=== PATIENT | male | born 1985 | race Caucasian/White ===

== ENCOUNTER 2023-04-30 07:31 | Emergency (ER) | payer MEDICAID, SELFPAY ==
[2023-04-30 07:41] VITALS: BP 164/102; PULSE 99; RESP 16; TEMP 36.8; O2SAT 96; BMI 29.4
--- NOTE | 2023-04-30 07:52 | XR_ITS ---
WS: [email or web address] EXAMINATION: XR ankle LT min 3V* [id number] REASON FOR EXAM: trauma COMPARISON: None available. ORDER DATE: 04/30/2023 7:52 AM TECHNIQUE: 3 views of the left ankle were obtained. X-RAY FINDINGS: There is narrowing of the ankle mortise and minor osteoarthritic osteophyte change. T here is circumferential subcutaneous soft tissue edema. IMPRESSION: No fractures or dislocations of the left ankle.
--- NOTE | 2023-04-30 07:52 | XR_ITS ---
WS: [id number] EXAMINATION: XR foot LT min 3V* [id number] REASON FOR EXAM: trauma COMPARISON: None available. ORDER DATE: 04/30/2023 7:52 AM TECHNIQUE: 3 views of the left foot were obtained. X-RAY FINDINGS: There are no fractures or dislocations. No there appears to be dorsal edema throughout the foot. The joint spaces are preserved. IMPRESSION: No fractures or dislocations of the left foot.
--- NOTE | 2023-04-30 08:16 | XR_ITS ---
WS: [id number] EXAMINATION: XR knee LT 3V* [id number] REASON FOR EXAM: trauma COMPARISON: None available. ORDER DATE: 04/30/2023 8:16 AM FINDINGS: There is no sign of any acute osseous or articular abnormality. There are no specific soft tissue abn ormalities. IMPRESSION: No acute abnormality.
--- NOTE | 2023-04-30 08:16 | XR_ITS ---
WS: [email or web address] EXAMINATION: XR tibia fibula LT 2V [id number] REASON FOR EXAM: trauma COMPARISON: 04/30/2023 ORDER DATE: 04/30/2023 8:16 AM FINDINGS: There is no sign of any acute osseous or articular abnormality there is circumferential edema at the level of the ankle mortise with small joint effusion. IMPRESSION: Soft tissue edema and small joint effusion.
--- NOTE | 2023-04-30 08:47 | ED_ITS ---
HPI - Extremity Problem General: Chief complaint: Extremity Injury, Lower Stated complaint: fall, left leg pain Time Seen by Provider: 04/30/23 07:52 Source: patient Mode of arrival: ambulatory History of Present Illness: 37-year-old male presents emergency room with complaint of left leg pain after a fall he had an inversion injury of his left ankle while going down the stairs. No other injury did not fall no loss of consciousness. No previous injury to this ankle. MD Complaint: joint swelling and joint pain Onset (ago): minute(s) Pain Consistency: constant Location: left Quality: aching Radiation: none Relieving factors: nothing Exacerbating factors: nothing Associated symptoms: Deny chest pain, fever(s) or rash Review of Systems Const: Denies: fever(s) or chills Card: Denies: chest pain Resp: Denies: dyspnea GI: Denies: abdominal pain : Denies: dysuria Musc: Denies: neck pain or back pain Skin/Breast: Denies: rash or pruritus Neuro: Denies: headache(s) Physical Exam Const: COMMON NORMALS: no acute distress GENERAL APPEARANCE: cooperative and comfortable ORIENTATION/CONSCIOUSNESS: Yes awake, Yes oriented to person, Yes oriented to place and Yes oriented to time HENMT: COMMON NORMALS: normocephalic, atraumatic and hearing grossly normal bilaterally HEAD & SCALP: normocephalic and atraumatic Resp: COMMON NORMALS: normal respiratory effort, No retractions, No use of accessory muscles and clear to auscultation bilaterally AUSCULTATION: clear to auscultation bilaterally Cardio: COMMON NORMALS: regular rate, regular rhythm and No murmurs present (Cardio) RATE: regular rate RHYTHM: regular rhythm GI: COMMON NORMALS: Soft to palpation and No hepatosplenomegaly present AUSCULTATION: Yes normoactive bowel sounds PALPATION: Yes Soft to palpation, No Tenderness to palpation present (GI), No Guarding due to palpation present (GI) and Yes No hepatosplenomegaly present Extremity: OTHER: Mild swelling of the left ankle dorsalis pedis posterior tibialis pulses normal neurovascular intact no crepitus no deformity Neuro: SENSORIUM/ORIENTATION: Yes oriented to person, Yes oriented to place and Yes oriented to time Skin: COMMON NORMALS: no rashes or lesions noted GENERAL SKIN EXAM: no rashes or lesions noted Course Vital Signs: Vital signs: Vital Signs Temperature 98.3 F 04/30/23 07:41 Pulse Rate 96 04/30/23 09:15 Respiratory Rate 16 04/30/23 09:15 Blood Pressure 154/103 04/30/23 09:15 Pulse Oximetry 99 04/30/23 09:15 Oxygen Delivery Me thod Room Air 04/30/23 07:41 MDM - Extremity (Nontraumatic) Medical Decision Making X-ray unremarkable. Ankle sprain treated with ice elevation compression as needed anti-inflammatories as needed follow-up as needed Medical Records I reviewed the patient's medical records. All radiology interpretation(s) finalized by discharge Discharge Plan Discharge Patient Disposition: Home Clinical Impression: Ankle sprain and strain Condition: Stable Prescriptions: New diclofenac sodium 75 mg tablet,delayed release (DR/EC) 75 mg PO Q12H PRN (Reason: pain) Qty: 20 0RF No Action Tylenol Ex Str Rapid Release 500 mg Tablet 1,000 mg PO Q6H PRN (Reason: Pain) Discharge Orders: Discharge ED (Routine); Ordered 04/30/23 Ordered By: Mateo Gongora Discharge Diet: Usual diet Discharge Activity: Limit activity as instructed Patient Instructions: Ankle Sprain (ED), Opioid Safety, Pain Management Activity Restrictions/Additional Instructions: Nonweightbearing on the affected ankle. Follow-up with your primary care doctor. You can use ice wrap or elevate as needed for comfort diclofenac 1 every 12 hours as needed for pain Coding Level of Care Code ED Medical Transcription Supervisor for Ale Guy
[2023-04-30] MEDS: acetaminophen 500 mg Tablet 1000 MG PO (09:07)
[2023-04-30 09:13] VITALS: BP 154/103; PULSE 96; RESP 16; O2SAT 99
[2023-04-30 09:15] VITALS: BP 154/103; PULSE 96; RESP 16; O2SAT 99
== END 2023-04-30 09:17 | disposition home or self-care (01) ==
PROVIDERS: Emergency Provider Family Medicine
DX: S93.402A Sprain of unspecified ligament of left ankle, initial encounter (principal); S96.912A Strain of unspecified muscle and tendon at ankle and foot level, left foot, initial encounter; W10.8XXA Fall (on) (from) other stairs and steps, initial encounter
CPT/HCPCS: 73562; 73590; 73610; 73630; 99284; E0114

== ENCOUNTER 2024-02-10 13:35 | Inpatient (IN) | payer MEDICAID, SELFPAY ==
[2024-02-10] VITALS (13 sets, daily range): BP systolic 110–176; BP diastolic 72–98; PULSE 72–109; RESP 14–20; TEMP 36.7–37.2; O2SAT 91–98; BMI 28.7
--- NOTE | 2024-02-10 14:28 | XRR_ITS ---
PROCEDURE INFORMATION: Exam: XR Right Knee Exam date and time: 02/10/2024 2:34 PM Age: 38 years old Clinical indication: Pain; Knee; Right; Additional info: Pain/swelling TECHNIQUE: Imaging protocol: Radiologic exam of the right knee. Views: 3 views. COMPARISON: No relevant prior studies available. FINDINGS: Bones/joints: There are mild degenerative changes of the knee joint, predominantly involving the medial joint compartment. Soft tissues: Mild prepatellar soft tissue swelling. XR/XR knee RT 3V* [id number] IMPRESSION: 1. 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 2. Mild prepatellar soft tissue swelling.
--- NOTE | 2024-02-10 14:28 | USCV_ITS ---
Agusto Mays Age: 38 Gender: M : 1985 Exam Date: 02/10/2024 14:45 Ordering Phys: Karli Berrios Technologist: BRANDI Exam Location: [facility] [place] Indication: Knee pain HISTORY: Lower extremity pain. PROCEDURES: Venous duplex imaging was performed in only the right lower extremity. The following venous structures were evaluated: common femoral vein, profunda vein, proximal portion of the greater saphenous vein, superficial femoral vein, and the popliteal vein. In addition, the posterior tibial and peroneal trunk were evaluated. Serial compression, augmentation maneuvers, and spectral Doppler flow evaluation were performed. FINDINGS: No evidence of DVT seen in any vessel visualized at this time. Fluid collections seen superioranterior to knee in/near knee joint CONCLUSIONS No evidence of right lower extremity DVT. Moderate suprapatella effusion Loki Acosta MD (Electronically Signed) Final Date: 10 February 2024 16:05 S
--- NOTE | 2024-02-10 14:29 | W.ED.EXTPRO ---
Documented by User: ELSIE Lai 02/11/24 08:53 HPI - Extremity Problem General: Chief complaint: Extremity Injury, Lower Stated complaint: Right leg swelling Time Seen by Provider: 02/10/24 14:04 Source: patient Mode of arrival: wheelchair Limitations: no limitations History of Present Illness: Patient is a 38-year-old male who presents to ED today with a complaint of redness and swelling to his right lower extremity. Patient states symptoms have been present over the past 3 days or so. He denies any injury or trauma. He states pain is mainly to the right knee and he states he cannot bear weight secondary to discomfort. He arrives slightly tachycardic. He denies fevers. No previous history of DVT. In addition to pain around the knee he is also having pain in his ankle and foot. MD Complaint: joint swelling and joint pain Onset (ago): day(s) Pain Consistency: constant Location: right and lower extremity Severity scale (1-10): 10 Radiation: none Relieving factors: immobilization Exacerbating factors: range of motion, weight bearing and walking Associated symptoms: Reports no associated symptoms; Deny chest pain or fever(s) Review of Systems Const: Denies: fever(s), chills, body aches, fatigue or malaise Card: Denies: chest pain Resp: Denies: dyspnea Musc: Reports: extremity pain, extremity swelling, joint pain, joint swelling, joint redness, joint warmth and limited range of motion; Denies: neck pain or back pain Neuro: Denies: headache(s), numbness in extremities, weakness in extremities or sensory changes [facility] ED PFSH: Medical History (Updated 02/10/24 @ 18:27 by Rene Macias MD) No pertinent past medical history Surgical History (Updated 02/10/24 @ 18:27 by Rene Macias MD) No pertinent past surgical history Social History (Updated 02/10/24 @ 18:27 by Rene Macias MD) Smoking and tobacco/nicotine status: never used tobacco/nicotine Alcohol intake: never Substance/Drug Use: never Physical Exam Const: COMMON NORMALS: no acute distress, patient oriented x3, no limitations, alert and well nourished GENERAL APPEARANCE: cooperative Resp: COMMON NORMALS: normal respiratory effort and clear to auscultation bilaterally AUSCULTATION: clear to auscultation bilaterally Cardio: COMMON NORMALS: regular rhythm RATE: tachycardic RHYTHM: regular rhythm Extremity: COMMON NORMALS: capillary refill normal and no calf tenderness GENERAL: Yes normal exam except as noted RIGHT LOWER EXTREMITY: Yes upper leg, Yes knee joint, Yes lower leg, Yes foot & digits and Yes foot & digits OTHER: Patient is significant swelling to his right lower extremity when compared to his left. There is overlying erythema and warmth affecting most of the extremity spreading up onto the medial thigh. There is obvious edema around the right knee. He has exquisite tenderness with range of motion here. He has palpable DP and PT pulses as well as intact sensation. Patient also complains of pain with range of motion of the foot and ankle. Scattered scabs/sores/abrasions. Neuro: COMMON NORMALS: patient oriented x3, moves all extremities, no focal motor deficits and no sensory deficits noted SENSORIUM/ORIENTATION: Yes alert Skin: NARRATIVE SKIN EXAM: see above Course Consultations: Consultation #1: Dr. Singh-recommends MRI in the morning, starting on IV Vanc/Zosyn, and he will consult in the morning Vital Signs: Vital signs: Vital Signs Temperature 97.6 F 02/11/24 07:14 Pulse Rate 69 02/11/24 07:14 Respiratory Rate 16 02/11/24 07:14 Blood Pressure 186/26 02/11/24 07:14 Pulse Oximetry 94 02/11/24 07:14 Oxygen Delivery Me thod Room Air 02/11/24 07:14 MDM - Extremity (Nontraumatic) Medical Decision Making Patient here for erythema, warmth, edema to the right lower extremity centered around the right knee. Patient has not been able to ambulate on the extremity. He has joint effusion seen on ultrasound as well as x-ray. Blood work he has a white count of 13.4. ESR is 19. CRP is 185. Dr. Gongora also evaluated patient. Spoke to Dr. Singh who is recommending MRI imaging in the morning, IV abx, and he will consult on patient as there is some concern for a septic joint. Spoke to Dr. Macias who will admit. Chart reviewed and patient discussed with midlevel. Agree with assessment and plan. Lab Data 02/11/24 04:55 02/11/24 04:55 Radiology Impressions Knee X-Ray 02/10/24 14:28 IMPRESSION: 1. 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 2. Mild prepatellar soft tissue swelling. Laboratory Results WBC 13.43 10^3/uL (3.29-11.43) H 02/10/24 15:17 RBC 5.11 10^6/uL (3.85-5.65) 02/10/24 15:17 Hgb 15.10 g/dL (11.27-16.99) 02/10/24 15:17 Hct 43.9 % (37-53) 02/10/24 15:17 MCV 85.9 fl (82-101) 02/10/24 15:17 MCH 29.5 pg (27-33) 02/10/24 15:17 MCHC 34.4 g/dL (30-55) 02/10/24 15:17 RDW 12.1 % (12.1-15.1) 02/10/24 15:17 Plt Count 364 10^3/cmm (157-399) 02/10/24 15:17 MPV 9.9 fL (7.4-10.4) 02/10/24 15:17 Neut % (Auto) 77.5 % 02/10/24 15:17 Lymph % (Auto) 11.5 % 02/10/24 15:17 Smith % (Auto) 10.6 % 02/10/24 15:17 Eos % (Auto) 0.1 % 02/10/24 15:17 Baso % (Auto) 0.1 % 02/10/24 15:17 Neut # (Auto) 10.40 10^3/uL (1.8-7.7) H 02/10/24 15:17 Lymph # (Auto) 1.6 10^3/uL (0.8-4.8) 02/10/24 15:17 Smith # (Auto) 1.4 10^3/uL (0.2-0.9) H 02/10/24 15:17 Eos # (Auto) 0.0 10^3/uL (0.0-0.8) 02/10/24 15:17 Baso # (Auto) 0.0 10^3/uL (0.0-0.1) 02/10/24 15:17 Nucleated RBC % (auto) 0 % 02/10/24 15:17 Nucleated RBCs # 0.0 /100WBC 02/10/24 15:17 ESR 19 mm/hr (0-10) H 02/10/24 15:17 PT 14.30 SECONDS (12.1-14.9) 02/10/24 15:17 INR 1.08 (0.8-1.2) 02/10/24 15:17 Sodium 135 mmol/L (136-145) L 02/10/24 15:17 Potassium 4.0 mmol/L (3.5-5.1) 02/10/24 15:17 Chloride 95 mmol/L (98-107) L 02/10/24 15:17 Carbon Dioxide 22 mmol/L (22-29) 02/10/24 15:17 Anion Gap 22.0 (5-19) H 02/10/24 15:17 BUN 17 mg/dL (6-20) 02/10/24 15:17 Creatinine 1.0 mg/dL (0.7-1.2) 02/10/24 15:17 GFR Calculation 84.1 mL/min (90-130) L 02/10/24 15:17 Glucose 127 mg/dL (65-115) H 02/10/24 15:17 Estimat Average Glucose 123 02/10/24 15:17 Hemoglobin A1c 5.9 % (4.0-6.0) 02/10/24 15:17 Calculated Osmolality 283 mOsm/kg (285-295) L 02/10/24 15:17 Lactic Acid Cancelled 02/10/24 15:17 Uric Acid 11.3 mg/dL (3.4-7.0) H 02/10/24 15:17 Calcium 9.4 mg/dL (8.5-10.5) 02/10/24 15:17 Total Bilirubin 1.1 mg/dL (0.15-1.2) 02/10/24 15:17 AST 16 U/L (0-40) 02/10/24 15:17 ALT 18 U/L (0-41) 02/10/24 15:17 Alkaline Phosphatase 111 U/L (40-130) 02/10/24 15:17 Creatine Kinase 335 U/L (39-308) H* 02/10/24 15:17 C-Reactive Protein 167.1 mg/L (0.0-4.9) H 02/10/24 15:17 C-Reactive Protein 185.8 mg/L (0.0-4.9) H 02/10/24 15:17 Total Protein 8.8 g/dL (6.6-8.7) H 02/10/24 15:17 Albumin 4.4 g/dL (3.5-5.2) 02/10/24 15:17 Globulin 4.4 g/dL (1.3-4.6) 02/10/24 15:17 Triglycerides 132 mg/dL (0-150) 02/10/24 15:17 Cholesterol 248 mg/dL (0-200) H 02/10/24 15:17 LDL Cholesterol, Calc 167 mg/dL (50-129) H 02/10/24 15:17 HDL Cholesterol 55 mg/dL (60-100) L 02/10/24 15:17 LDL/HDL Ratio 3.04 RATIO (0.00-3.22) 02/10/24 15:17 Cholesterol/HDL Ratio 4.51 mg/dL (1.0-5.00) 02/10/24 15:17 Procalcitonin 0.20 ng/mL (0-0.5) 02/10/24 15:17 TSH 3.13 uIU/mL (0.27-4.20) 02/10/24 15:17 Synovial Color Cancelled 02/10/24 18:57 Synovial Appearance Cancelled 02/10/24 18:57 Synovial WBC Cancelled 02/10/24 18:57 Synovial RBC Cancelled 02/10/24 18:[address] Cancelled 02/10/24 18:57 Synovial Mononuclear Cancelled 02/10/24 18:57 Synov Polynuclear WBCs Cancelled 02/10/24 18:57 Synovial Other Cells Cancelled 02/10/24 18:57 Synovial Polynuclear % Cancelled 02/10/24 18:57 Synovial Mononuclear % Cancelled 02/10/24 18:57 Path Cons w/Slide Cancelled 02/10/24 18:57 Discharge Plan Discharge Patient Disposition: Admitted As Inpatient Admit Provider: Rene Macias Clinical Impression: Cellulitis of right lower extremity Condition: Stable Coding Level of Care Code ED Agricultural Mechanic for Chg Fwd Documented by User: Mateo Gongora DO 02/10/24 18:20 HPI - Extremity Problem General: Chief complaint: Extremity Injury, Lower Stated complaint: Right leg swelling Time Seen by Provider: 02/10/24 14:04 [facility] ED PFSH: Medical History (Updated 02/10/24 @ 18:27 by Rene Macias MD) No pertinent past medical history Surgical History (Updated 02/10/24 @ 18:27 by Rene Macias MD) No pertinent past surgical history Social History (Updated 02/10/24 @ 18:27 by Rene Macias MD) Smoking and tobacco/nicotine status: never used tobacco/nicotine Alcohol intake: never Substance/Drug Use: never Course Vital Signs: Vital signs: Vital Signs Temperature 97.6 F 02/11/24 07:14 Pulse Rate 69 02/11/24 07:14 Respiratory Rate 16 02/11/24 07:14 Blood Pressure 186/26 02/11/24 07:14 Pulse Oximetry 94 02/11/24 07:14 Oxygen Delivery Me thod Room Air 02/11/24 07:14 MDM - Extremity (Nontraumatic) Medical Decision Making Patient here for erythema, warmth, edema to the right lower extremity centered around the right knee. Patient has not been able to ambulate on the extremity. He has joint effusion seen on ultrasound as well as x-ray. Blood work he has a white count of 13.4. ESR is 19. CRP is 185. Dr. Gongora also evaluated patient. Spoke to Dr. Singh who is recommending MRI imaging in the morning and he will consult on patient as there is some concern for a septic joint. Spoke to Dr. Macias who will admit. Chart reviewed and patient discussed with midlevel. Agree with assessment and plan. Medical Records I reviewed the patient's medical records. Lab Data I reviewed the patient's lab results. 02/11/24 04:55 02/11/24 04:55 Radiology Impressions Knee X-Ray 02/10/24 14:28 IMPRESSION: 1. 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 2. Mild prepatellar soft tissue swelling. Laboratory Results WBC 13.43 10^3/uL (3.29-11.43) H 02/10/24 15:17 RBC 5.11 10^6/uL (3.85-5.65) 02/10/24 15:17 Hgb 15.10 g/dL (11.27-16.99) 02/10/24 15:17 Hct 43.9 % (37-53) 02/10/24 15:17 MCV 85.9 fl (82-101) 02/10/24 15:17 MCH 29.5 pg (27-33) 02/10/24 15:17 MCHC 34.4 g/dL (30-55) 02/10/24 15:17 RDW 12.1 % (12.1-15.1) 02/10/24 15:17 Plt Count 364 10^3/cmm (157-399) 02/10/24 15:17 MPV 9.9 fL (7.4-10.4) 02/10/24 15:17 Neut % (Auto) 77.5 % 02/10/24 15:17 Lymph % (Auto) 11.5 % 02/10/24 15:17 Smith % (Auto) 10.6 % 02/10/24 15:17 Eos % (Auto) 0.1 % 02/10/24 15:17 Baso % (Auto) 0.1 % 02/10/24 15:17 Neut # (Auto) 10.40 10^3/uL (1.8-7.7) H 02/10/24 15:17 Lymph # (Auto) 1.6 10^3/uL (0.8-4.8) 02/10/24 15:17 Smith # (Auto) 1.4 10^3/uL (0.2-0.9) H 02/10/24 15:17 Eos # (Auto) 0.0 10^3/uL (0.0-0.8) 02/10/24 15:17 Baso # (Auto) 0.0 10^3/uL (0.0-0.1) 02/10/24 15:17 Nucleated RBC % (auto) 0 % 02/10/24 15:17 Nucleated RBCs # 0.0 /100WBC 02/10/24 15:17 ESR 19 mm/hr (0-10) H 02/10/24 15:17 PT 14.30 SECONDS (12.1-14.9) 02/10/24 15:17 INR 1.08 (0.8-1.2) 02/10/24 15:17 Sodium 135 mmol/L (136-145) L 02/10/24 15:17 Potassium 4.0 mmol/L (3.5-5.1) 02/10/24 15:17 Chloride 95 mmol/L (98-107) L 02/10/24 15:17 Carbon Dioxide 22 mmol/L (22-29) 02/10/24 15:17 Anion Gap 22.0 (5-19) H 02/10/24 15:17 BUN 17 mg/dL (6-20) 02/10/24 15:17 Creatinine 1.0 mg/dL (0.7-1.2) 02/10/24 15:17 GFR Calculation 84.1 mL/min (90-130) L 02/10/24 15:17 Glucose 127 mg/dL (65-115) H 02/10/24 15:17 Estimat Average Glucose 123 02/10/24 15:17 Hemoglobin A1c 5.9 % (4.0-6.0) 02/10/24 15:17 Calculated Osmolality 283 mOsm/kg (285-295) L 02/10/24 15:17 Lactic Acid Cancelled 02/10/24 15:17 Uric Acid 11.3 mg/dL (3.4-7.0) H 02/10/24 15:17 Calcium 9.4 mg/dL (8.5-10.5) 02/10/24 15:17 Total Bilirubin 1.1 mg/dL (0.15-1.2) 02/10/24 15:17 AST 16 U/L (0-40) 02/10/24 15:17 ALT 18 U/L (0-41) 02/10/24 15:17 Alkaline Phosphatase 111 U/L (40-130) 02/10/24 15:17 Creatine Kinase 335 U/L (39-308) H* 02/10/24 15:17 C-Reactive Protein 167.1 mg/L (0.0-4.9) H 02/10/24 15:17 C-Reactive Protein 185.8 mg/L (0.0-4.9) H 02/10/24 15:17 Total Protein 8.8 g/dL (6.6-8.7) H 02/10/24 15:17 Albumin 4.4 g/dL (3.5-5.2) 02/10/24 15:17 Globulin 4.4 g/dL (1.3-4.6) 02/10/24 15:17 Triglycerides 132 mg/dL (0-150) 02/10/24 15:17 Cholesterol 248 mg/dL (0-200) H 02/10/24 15:17 LDL Cholesterol, Calc 167 mg/dL (50-129) H 02/10/24 15:17 HDL Cholesterol 55 mg/dL (60-100) L 02/10/24 15:17 LDL/HDL Ratio 3.04 RATIO (0.00-3.22) 02/10/24 15:17 Cholesterol/HDL Ratio 4.51 mg/dL (1.0-5.00) 02/10/24 15:17 Procalcitonin 0.20 ng/mL (0-0.5) 02/10/24 15:17 TSH 3.13 uIU/mL (0.27-4.20) 02/10/24 15:17 Synovial Color Cancelled 02/10/24 18:57 Synovial Appearance Cancelled 02/10/24 18:57 Synovial WBC Cancelled 02/10/24 18:57 Synovial RBC Cancelled 02/10/24 18:[address] Cancelled 02/10/24 18:57 Synovial Mononuclear Cancelled 02/10/24 18:57 Synov Polynuclear WBCs Cancelled 02/10/24 18:57 Synovial Other Cells Cancelled 02/10/24 18:57 Synovial Polynuclear % Cancelled 02/10/24 18:57 Synovial Mononuclear % Cancelled 02/10/24 18:57 Path Cons w/Slide Cancelled 02/10/24 18:57 All radiology interpretation(s) finalized by discharge Discharge Plan Discharge Patient Disposition: Admitted As Inpatient Admit Provider: Rene Macias Clinical Impression: Cellulitis of right lower extremity Condition: Stable Coding Level of Care Code ED Agricultural Mechanic for Chg Fwd
[2024-02-10 15:38] LABS: Basophils % 0.1 %; Eosinophils % 0.1 %; Hematocrit 43.9 % (37-53); Lymphocytes # 1.6 10^3/uL (0.8-4.8); Lymphocytes % 11.5 %; Mean Corpuscular HGB Conc 34.4 g/dL (30-55); Mean Corpuscular Hemoglobin 29.5 pg (27-33); Mean Corpuscular Volume 85.9 fl (82-101); Mean Platelet Volume 9.9 fL (7.4-10.4); Monocytes # 1.4 10^3/uL (0.2-0.9); Monocytes % 10.6 %; Neutrophils % 77.5 %; Nucleated Red Blood Cells % 0 %; Platelet Count 364 10^3/cmm (157-399); Red Blood Count 5.11 10^6/uL (3.85-5.65); Red Cell Distribution Width 12.1 % (12.1-15.1); White Blood Count 13.43 10^3/uL (3.29-11.43)
[2024-02-10 15:58] LABS: Alanine Aminotransferase 18 U/L (0-41); Albumin Level 4.4 g/dL (3.5-5.2); Alkaline Phosphatase 111 U/L (40-130); Aspartate Amino Transferase 16 U/L (0-40); Blood Urea Nitrogen 17 mg/dL (6-20); C Reactive Protein 185.8 mg/L (0.0-4.9); Calcium 9.4 mg/dL (8.5-10.5); Carbon Dioxide 22 mmol/L (22-29); Chloride 95 mmol/L (98-107); Creatinine Clr Calc Pharmacy 114.5692; Globulin 4.4 g/dL (1.3-4.6); Glomerular Filtration Rate 84.1 mL/min (90-130); Glucose 127 mg/dL (65-115); Osmolality Calculated 283 mOsm/kg (285-295); Sodium 135 mmol/L (136-145); Total Bilirubin 1.1 mg/dL (0.15-1.2); Total Protein 8.8 g/dL (6.6-8.7)
[2024-02-10 16:08] LABS: Erythrocyte Sedimentation Rate 19 mm/hr (0-10)
[2024-02-10 17:59] LABS: INR 1.08 (0.8-1.2)
[2024-02-10 18:13] LABS: Thyroid Stimulating Hormone 3.13 uIU/mL (0.27-4.20)
[2024-02-10] MEDS: piperacillin-tazobactam 3.375 GM in sodium chloride 0.9% (plus) 50 ML IV ×2 (18:13→23:30)
--- NOTE | 2024-02-10 18:15 | P.CONIM_ITS ---
Providers/Reason For Consult 2 Consulting Physician/Specialty*: Hospitalist Reason for Consult*: Septic knee on the right Attending Physician: Eusebio Singh DO History of Present Illness History of Present Illness Agusto Mays is a 38 year old male started having right ankle swelling earlier this week spread up to his knee has severe pain in his right knee at this point. Patient has a history of infection in his arm that needed I&D. Review of Systems 2 Const: Denies: fever(s), chills, body aches, fatigue or malaise Card: Denies: chest pain Resp: Denies: dyspnea Musc: Reports: extremity pain, extremity swelling, joint pain, joint swelling, joint redness, joint warmth and limited range of motion; Denies: neck pain or back pain Neuro: Denies: headache(s), numbness in extremities, weakness in extremities or sensory changes Medications/Allergies Home Medications Medication Instructions Recorded Confirmed Last Taken Type acetaminophen 500 mg tablet 1,000 mg PO Q6H PRN Pain 04/30/23 04/30/23 Unknown History diclofenac sodium 75 mg 75 mg PO Q12H PRN pain #20 tabs 04/30/23 Unknown Rx tablet,delayed release Allergies Allergy/AdvReac Type Severity Reaction Status Date / Time No Known Allergies Allergy Verified 02/10/24 13:57 Vitals/I&O/Wt Last Vital Signs Temp 98.4 F 02/10/24 17:53 Pulse 107 H 02/10/24 17:53 Resp 20 H 02/10/24 17:53 BP 139/81 02/10/24 17:53 Pulse Ox 97 02/10/24 17:53 O2 Del Method Room Air 02/10/24 17:53 Weight last 48 hrs Weight 200 lb Physical Exam 2 Narrative: Right leg is swollen. Knee is swollen with significant warmth. Data 02/10/24 15:17 02/10/24 15:17 Micro: Microbiology 02/10/24 15:05 Blood Culture - Preliminary Blood SPECIMEN COLLECTED 02/10/24 15:17 Blood Culture - Preliminary Blood SPECIMEN COLLECTED A&P Assessment and plan (1) Septic joint of right knee joint: Patient has septic knee we will plan to take to the OR. Qualifiers: Septic arthritis organism: due to unspecified organism Qualified Code(s): M00.9 - Pyogenic arthritis, unspecified Consult Attestations 2 Medical Necessity Statement: Per primary service Coding Level of Care Code Acute Code for Chg Fwd Diagnoses Pyogenic arthritis of right knee joint, due to unspecified organism M00.9 Septic arthritis organism: due to unspecified organism
[2024-02-10] MEDS: pantoprazole 40 mg SDV IVP (18:16)
--- NOTE | 2024-02-10 18:19 | P.ANESASSM_ITS ---
Pre-Anesthetic Assessment Height/Weight: Height 1.78 m Weight 90.718 kg Temp Pulse Resp BP Pulse Ox O2 Del Method 98.4 F 107 H 20 H 139/81 97 Room Air 02/10/24 17:53 02/10/24 17:53 02/10/24 17:53 02/10/24 17:53 02/10/24 17:53 02/10/24 17:53 Operation Date: 02/10/24 18:30 Proposed Procedures p Debridement Lower Extremity(Right) - Eusebio H Samantha, DO Familial anesthetic complications: None Was Beta Ciaran taken within 24 hours: N/A Was Clonidine taken within 24 hours: N/A Last intake: > 8 hrs Social No alcohol and No tobacco Exam alert, oriented x 3, clear to auscultation bilaterally and regular rate & rhythm Airway Mallampati: Class I Dentition: other (multiple missing or almost gone ) Anesthetic Plan ASA status: 1E Anesthesia: General Risk of > 500 ml blood loss (7ml/kg in children): No Medications/Allergies Home Medications Medication Instructions Recorded Confirmed Last Taken Type acetaminophen 500 mg tablet 1,000 mg PO Q6H PRN Pain 04/30/23 04/30/23 Unknown History diclofenac sodium 75 mg 75 mg PO Q12H PRN pain #20 tabs 04/30/23 Unknown Rx tablet,delayed release Allergies Allergy/AdvReac Type Severity Reaction Status Date / Time No Known Allergies Allergy Verified 02/10/24 13:57 Current Medications Generic Name Dose Route Start Last Admin Trade Name Freq PRN Reason Stop Dose Admin Pantoprazole Sodium 40 mg 02/10/24 17:45 02/10/24 18:16 Pantoprazole 40 Mg Sdv IVP 40 mg Q24H [id number] Administration Data Anesthesia 02/10/24 15:17 02/10/24 15:17 Short CBC 02/10/24 Range/Units 15:17 WBC 13.43 H (3.29-11.43) 10^3/uL Hgb 15.10 (11.27-16.99) g/dL Hct 43.9 (37-53) % MCV 85.9 (82-101) fl Plt Count 364 (157-399) 10^3/cmm Neut % (Auto) 77.5 % Neut # (Auto) 10.40 H (1.8-7.7) 10^3/uL BMP 02/10/24 15:17 Sodium 135 L Potassium 4.0 Chloride 95 L Carbon Dioxide 22 BUN 17 Creatinine 1.0 Glucose 127 H Calcium 9.4 Liver Function 02/10/24 Range/Units 15:17 Total Bilirubin 1.1 (0.15-1.2) mg/dL AST 16 (0-40) U/L ALT 18 (0-41) U/L Alkaline Phosphatase 111 (40-130) U/L Albumin 4.4 (3.5-5.2) g/dL Coags 02/10/24 15:17 ESR 19 H PT 14.30 INR 1.08 C-Reactive Protein 185.8 H Microbiology 02/10/24 15:05 Blood Culture - Preliminary Blood SPECIMEN COLLECTED 02/10/24 15:17 Blood Culture - Preliminary Blood SPECIMEN COLLECTED Cardiac Studies: 2 No Data to Display
[2024-02-10] MEDS: clindamycin 600 MG/50 ML PREMIX 100 MG IV (18:21)
[2024-02-10 18:24] LABS: C Reactive Protein 167.1 mg/L (0.0-4.9); Chol HDL Ratio 4.51 mg/dL (1.0-5.00); Cholesterol 248 mg/dL (0-200); HDL Cholesterol 55 mg/dL (60-100); LDL Cholesterol Calculated 167 mg/dL (50-129); LDL HDL Ratio 3.04 RATIO (0.00-3.22); Triglycerides 132 mg/dL (0-150); Uric Acid 11.3 mg/dL (3.4-7.0)
--- NOTE | 2024-02-10 18:24 | P.HP_ITS ---
Providers/Chief Complaint 2 Chief Complaint: Right leg swelling History of Present Illness Agusto Mays is a 38 year old male with no significant past medical history, who presents [facility], due to right lower extremity swelling. Patient tells me that his symptoms started about 5 days ago, when he noticed that in his right foot, distal to the great toe, lateral aspect of the foot he started developing swelling, erythema, warmth, he tells me that then over the next few days the erythema and the swelling and the warmth rapidly spread, to the hindfoot and then up his legs, to his knee. He tells me that today he is not able to walk due to severe right knee swelling erythema, warmth, tenderness, pain with motion. He denies any cat bites or dog bites no animal bites, no tick bites, no recent injuries, no recent falls, denies any alcoholism no history of gout, denies any breaks in the skin, denies any drug use. He does tell me that roughly a few years ago, he had a spot on his right arm, which he picked at, which quickly developed into cellulitis and abscess requiring debridement, and IV antibiotics. Denies any sick contacts, recent travel does report fevers and chills,. Review of Systems 2 Const: Reports: fever(s), chills, fatigue and malaise Card: Denies: chest pain Resp: Denies: dyspnea GI: Denies: abdominal pain Medications/Allergies Home Medications Medication Instructions Recorded Confirmed Last Taken Type acetaminophen 500 mg tablet 1,000 mg PO Q6H PRN Pain 04/30/23 04/30/23 Unknown History diclofenac sodium 75 mg 75 mg PO Q12H PRN pain #20 tabs 04/30/23 Unknown Rx tablet,delayed release Allergies Allergy/AdvReac Type Severity Reaction Status Date / Time No Known Allergies Allergy Verified 02/10/24 13:57 PFSH Acute 2 PFSH: Medical History (Updated 02/10/24 @ 18:27 by Rene Macias MD) No pertinent past medical history Surgical History (Updated 02/10/24 @ 18:27 by Rene Macias MD) No pertinent past surgical history Social History (Updated 02/10/24 @ 18:27 by Rene Macias MD) Smoking and tobacco/nicotine status: never used tobacco/nicotine Alcohol intake: never Substance/Drug Use: never Vitals/I&O/Wt Last Vital Signs Temp 98.4 F 02/10/24 17:53 Pulse 107 H 02/10/24 17:53 Resp 20 H 02/10/24 17:53 BP 139/81 02/10/24 17:53 Pulse Ox 97 02/10/24 17:53 O2 Del Method Room Air 02/10/24 17:53 Weight last 48 hrs Weight 90.718 kg Physical Exam 2 Const: COMMON NORMALS: no acute distress and patient oriented x3 HENMT: COMMON NORMALS: normocephalic HEAD & SCALP: normocephalic Neck/C-Spine: COMMON NORMALS: no JVD Resp: COMMON NORMALS: normal respiratory effort, No retractions, No use of accessory muscles and clear to auscultation bilaterally AUSCULTATION: clear to auscultation bilaterally Cardio: COMMON NORMALS: regular rate, regular rhythm, S1 normal heart sound present and S2 normal heart sound present RATE: regular rate RHYTHM: r egular rhythm HEART SOUNDS: S1 normal heart sound present and S2 normal heart sound present GI: COMMON NORMALS: Normal to inspection, nondistended, normoactive bowel sounds present, Soft to palpation and non-tender Extremity: COMMON NORMALS: no calf tenderness and no pedal edema Neuro: COMMON NORMALS: patient oriented x3 Psych: COMMON NORMALS: mental status grossly normal Skin: NARRATIVE SKIN EXAM: On examination, left knee erythematous, swollen, tenderness, diffuse tenderness, has suprapatellar bursal swelling, and tenderness, has swelling, tenderness no significant erythema, over calf, or over tibial region, does have swelling, erythema, over the foot, diffusely Data 02/10/24 15:17 02/10/24 15:17 Micro: Microbiology 02/10/24 15:05 Blood Culture - Preliminary Blood SPECIMEN COLLECTED 02/10/24 15:17 Blood Culture - Preliminary Blood SPECIMEN COLLECTED A&P Assessment and plan (1) Cellulitis of right lower extremity: (2) Septic joint of right knee joint: Qualifiers: Septic arthritis organism: due to unspecified organism Qualified Code(s): M00.9 - Pyogenic arthritis, unspecified Plan Right lower extremity cellulitis ? Concerns for right lower extremity septic knee joint ? Ultrasound -FINDINGS: No evidence of DVT seen in any vessel visualized at this time. Fluid collections seen superioranterior to knee in/near knee joint ? Plan ? Lactic acid pending ? Uric acid pending ? CRP 185 ? CPK pending, - received vancomycin, Zosyn, ? Continue with clindamycin ? Check A1c ? Follow blood cultures ? Spoke to Dr. Singh, as there is concern for septic knee joint, Plan on surgical debridement, follow surgical cultures Full code Lovenox for DVT prophylaxis Attestations 2 Medical Necessity Statement*: Patient requires hospitalization, inpatient, greater than 2 midnights, for right lower extremity cellulitis, with concern for right knee septic joint Diagnoses Cellulitis of right lower extremity L03.115 Pyogenic arthritis of right knee joint, due to unspecified organism M00.9 Septic arthritis organism: due to unspecified organism
[2024-02-10] MEDS: vancomycin 1,000 MG in sodium chloride 0.9% 250 ML 250 MG IV (18:29)
[2024-02-10 18:38] LABS: Creatine Phosphokinase 335 U/L (39-308)
--- NOTE | 2024-02-10 19:08 | PM.OP ---
Operative Report Date of procedure: February 10, 2024 Pre-op diagnosis: Right septic knee Post-op diagnosis: same Procedure done: Irrigation debridement of right septic knee Surgeon: Eusebio Singh DO Estimated blood loss (mL): 10 Procedure: Irrigation debridement right septic knee open Patient was brought to the operating room after undergoing anesthesia was placed in supine position. All areas appear well-padded. Tourniquet was applied. Skin incision was made over the anterior knee. Subperiosteal dissection was made over the patella over to the medial retinaculum. Medial retinaculum was split. In the medial side of the patella was opened yellowish cloudy fluid came out. Appearance of what seems like small egg yolk textured type material came out. It was irrigated with a liter of saline until it was completely clear no more yellowish appearance cloudy appearance was coming out. Knee was inspected did not see any necrotic tissue. Once the knee was completely irrigated deep drain was placed and the medial retinaculum was closed with 0 Vicryl's subcu skin was closed with 2-0 Vicryl and ina. Sterile dressings were applied and patient was transferred to the PACU in stable condition.
--- NOTE | 2024-02-10 20:00 | ANE.PACU2 ---
Inpatient post-anesthesia follow up: Airway intact: Yes Vital signs: Temperature 97.6 F Pulse Rate 69 Respiratory Rate 16 Blood Pressure 186/26 Pulse Oximetry 94 Oxygen Delivery Me thod Room Air Oxygen Flow Rate Fraction of Inspir ed Oxygen Hydration adequate: Yes Nausea and vomiting: No Pain level: 1 Mental status: Baseline
[2024-02-10] MEDS: sodium chloride 0.9% 1,000 ML 100 ML IV (21:21)
[2024-02-10] MEDS: enoxaparin 40 mg/0.4 mL Syringe SUBCUT (21:22)
[2024-02-10 22:13] LABS: Lactic Sepsis W/Reflex 1.4 mmol/L (0.5-2.2)
[2024-02-10 22:54] LABS: Estmated Average Glucose 123; Hemoglobin A1C 5.9 % (4.0-6.0)
[2024-02-10] MEDS: ketorolac 30 mg/mL INJ IVP (23:29)
[2024-02-10] MEDS: HYDROcodone-acetaminophen 5-325 mg Tablet PO (23:30)
[2024-02-11 00:26] VITALS: BP 121/80; PULSE 91; RESP 16; O2SAT 95
[2024-02-11] MEDS: clindamycin 600 MG/50 ML PREMIX 100 MG IV (02:43)
[2024-02-11 04:24] VITALS: BP 121/75; PULSE 78; RESP 16; TEMP 37.2; O2SAT 94
[2024-02-11 05:15] LABS: Basophils % 0.1 %; Hematocrit 39.1 % (37-53); Lymphocytes # 0.8 10^3/uL (0.8-4.8); Lymphocytes % 8.4 %; Mean Corpuscular Hemoglobin 29.2 pg (27-33); Mean Corpuscular Volume 85.9 fl (82-101); Mean Platelet Volume 9.8 fL (7.4-10.4); Monocytes # 0.5 10^3/uL (0.2-0.9); Monocytes % 5.1 %; Neutrophils # 8.61 10^3/uL (1.8-7.7); Nucleated Red Blood Cells % 0 %; Platelet Count 326 10^3/cmm (157-399); Red Blood Count 4.55 10^6/uL (3.85-5.65); Red Cell Distribution Width 12.2 % (12.1-15.1); White Blood Count 10.01 10^3/uL (3.29-11.43)
[2024-02-11 05:37] LABS: Alanine Aminotransferase 15 U/L (0-41); Alkaline Phosphatase 95 U/L (40-130); Anion Gap 20.4 (5-19); Aspartate Amino Transferase 15 U/L (0-40); Blood Urea Nitrogen 25 mg/dL (6-20); Calcium 8.3 mg/dL (8.5-10.5); Carbon Dioxide 20 mmol/L (22-29); Chloride 100 mmol/L (98-107); Creatinine Clr Calc Pharmacy 108.7108; Globulin 3.5 g/dL (1.3-4.6); Glomerular Filtration Rate 75.3 mL/min (90-130); Glucose 178 mg/dL (65-115); Osmolality Calculated 291 mOsm/kg (285-295); Potassium 4.4 mmol/L (3.5-5.1); Sodium 136 mmol/L (136-145); Total Bilirubin 0.8 mg/dL (0.15-1.2); Total Protein 7.5 g/dL (6.6-8.7)
[2024-02-11 05:44] VITALS: O2SAT 95
[2024-02-11] MEDS: vancomycin 1,500 MG/300 ML PIGGYBACK 200 MG IV (06:48)
[2024-02-11] MEDS: HYDROcodone-acetaminophen 5-325 mg Tablet PO (06:48)
--- NOTE | 2024-02-11 06:52 | P.PN_ITS ---
Subjective 2 Subjective: Patient's pain improved this morning. Knee less tender less swelling less warmth awaiting cultures Vitals/I&O/Wt Last Vital Signs Temp 98.9 F 02/11/24 04:24 Pulse 78 02/11/24 04:24 Resp 16 02/11/24 04:24 BP 121/75 02/11/24 04:24 Pulse Ox 95 02/11/24 05:44 O2 Del Method Room Air 02/11/24 05:44 02/10/24 02/10/24 02/11/24 14:59 22:59 06:59 Intake Total 520 / 520 220 / 740 Output Total / Balance 500 / 500 220 / 720 Weight last 48 hrs Weight 219 lb 5 oz Weight 226 lb 12.8 oz Weight 200 lb Physical Exam 2 Narrative: Dressing intact no drainage minimal output from drain we will keep the drain in until he gets up Data 02/11/24 04:55 02/11/24 04:55 Micro: Microbiology 02/10/24 15:05 Blood Culture - Preliminary Blood SPECIMEN COLLECTED 02/10/24 15:17 Blood Culture - Preliminary Blood SPECIMEN COLLECTED A&P Assessment and plan (1) Septic joint of right knee joint: Postop day #1 the left knee I&D Will keep drain in until PT works with him. Qualifiers: Septic arthritis organism: due to unspecified organism Qualified Code(s): M00.9 - Pyogenic arthritis, unspecified Attestations 2 Medical Necessity Statement*: Per primary service Coding Level of Care Code Acute Code for [facility] Diagnoses Pyogenic arthritis of right knee joint, due to unspecified organism M00.9 Septic arthritis organism: due to unspecified organism
[2024-02-11 07:14] VITALS: BP 186/26; PULSE 69; RESP 16; TEMP 36.4; O2SAT 94
[2024-02-11 08:30] VITALS: BP 122/78; PULSE 76; RESP 15; TEMP 36.4; O2SAT 96
[2024-02-11] MEDS: piperacillin-tazobactam 3.375 GM in sodium chloride 0.9% (plus) 50 ML IV (08:50)
--- NOTE | 2024-02-11 09:13 | PC.CHAP ---
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 [] Patient/Family/Request visit [] Outpatient visit [] Follow-up visit [] Physician referral [] Code/Alert [X] Routine visit [] Staff referral [] Actively dying [] Patient sleeping [] Family support [] [] Out of room [] Palliative care [] [] Receiving care in room [] Pre-surgical visit [] Trauma [] Long length of stay [] ICU visit [] Other: Relational/Emotional Strength [X] Patient feels connected with others/family/visitors/staff [] Distress [] Loneliness/isolation [] Abandonment Spirituality of Patient [X] Person of Anastacia [] Attends Moravian of their Anastacia [X] Believes in Prayer [] Reads Bible or Pentecostal materials [] There are Spiritual issues to be addressed Benefits Clerk Interventions [X] Prayer [X] Active listening [] Non-anxious presence [X] Spiritual/emotional support [] Crisis/trauma care [] Spiritual counseling [] Bereavement support [] Provided bereavement packet [] Provided Bible/devotional materials [] Provided toy/stuffed animal, coloring book to patient or family member [] Provided Communion [] Anointing/[place] [] Salvation [X] Completed spiritual assessment [] Other: Impact on Illness or Injury [] Angry [] Fearful [] Anxious [] Often cries [] Exhaustion [] Unable to work [] Unable to attend roman catholic [] Unable to walk/stand [] Unable to read [] Unable to drive [] Unable to eat/drink [] Unable to sleep [] Unable to be with family [] Patient intubated [] Other: Summary Time spent with patient 5 MIN
[2024-02-11 10:24] LABS: C Reactive Protein 177.1 mg/L (0.0-4.9)
--- NOTE | 2024-02-11 12:00 | PC.NURSE ---
Pt leaving AMA. This nurse speaks with pt and informs him of the risks of leaving against medical advice. Dr. Macias also spoke with pt in detail this morning. 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 Dr. Macias and Dr. Singh advised. Will pull hemovac per Dr. Singh.
--- NOTE | 2024-02-11 12:16 | PC.NURSE ---
Wound vac pulled per Dr Singh order. Drain intact 2x2 and biooclussive applied to site.
[2024-02-11 12:18] VITALS: BP 186/26; PULSE 69; RESP 16; TEMP 36.4; O2SAT 94
--- NOTE | 2024-02-11 12:39 | P.DS_ITS ---
Discharge Providers Date of Admission: 02/10/24 19:41 Date of Discharge: February 11, 2024 Attending Provider at Admission: Rene Macias MD Attending Provider at Discharge: Euesbio Singh DO Diagnoses at Discharge Discharge Diagnosis (1) Septic joint of right knee joint: Status: Acute Qualifiers: Septic arthritis organism: due to unspecified organism Qualified Code(s): M00.9 - Pyogenic arthritis, unspecified Reason for Visit Reason for Visit: Right leg swelling Hospital Course Hospital Course Agusto Mays is a 38 year old male with no significant past medical history, who presents [facility], due to right lower extremity swelling. Patient tells me that his symptoms started about 5 days ago, when he noticed that in his right foot, distal to the great toe, lateral aspect of the foot he started developing swelling, erythema, warmth, he tells me that then over the next few days the erythema and the swelling and the warmth rapidly spread, to the hindfoot and then up his legs, to his knee. He tells me that today he is not able to walk due to severe right knee swelling erythema, warmth, tenderness, pain with motion. He denies any cat bites or dog bites no animal bites, no tick bites, no recent injuries, no recent falls, denies any alcoholism no history of gout, denies any breaks in the skin, denies any drug use. He does tell me that roughly a few years ago, he had a spot on his right arm, which he picked at, which quickly developed into cellulitis and abscess requiring debridement, and IV antibiotics. Denies any sick contacts, recent travel does report fevers and chills,. Patient was admitted to [facility] for right lower extremity cellulitis, with concerns for right knee septic arthritis with deep tissue infection, he received broad-spectrum antibiotic therapy in the ER, orthopedic service was urgently consulted, seen by Dr. Singh, he underwent irrigation debridement of right knee joint. He was monitored overnight, received broad- spectrum antibiotic therapy, he had a right knee drain in place, monitored on broad-spectrum antibiotic therapy. Leukocytosis improving, so far blood cultures no growth, Gram stain showed few white blood cells, no organisms seen, abscess culture is pending, not enough fluid for crystal analysis. Patient was seen the morning of 02/11/2024, sitting up in a chair, receiving IV antibiotics, on room air, normotensive, afebrile, alert oriented x 4 ? On examination continue to have right lower extremity erythema, swelling, warmth, which extends from his foot all the way to up his ankle, up to the level of his knee ? Also his right knee erythema, swelling, tenderness has significantly improved compared to last night, but continues to have erythema, swelling, tenderness, with a right knee drain in place ? I discussed with patient that he is going to need IV antibiotics, will have to watch his cultures, as there is concern for septic knee joint, he might require IV antibiotics ? Agusto tells me that he is feeling better and he wants to leave the hospital ? I discussed with him the morbidity and mortality associate with septic knee joint, cellulitis, deep tissue infection concerns, he voiced understanding, all questions answered -He needs IV antibiotics here in the hospital, potentially needs long-term antibiotic therapy, needs close clinical monitoring, we need to monitor his cultures, ? Patient is adamant about going home, he tells me that his grandfather has nobody to take care of him, and he has 2 puppies at home that need to be let out ? Discussed morbidity and mortality associated with septic knee joint, cellulitis, deep tissue infection, including but not limited to loss of life, loss of limb, sepsis, septic shock, he voiced understanding, all questions answered -He tells me he does not know what he is going to do -I and nursing staff strongly recommended for him to stay here in the hospital -Patient was adamant about leaving AGAINST MEDICAL ADVICE, his drain was remov ed, and left AGAINST MEDICAL ADVICE -I have sent in 7 days of p.o. antibiotics to the pharmacy Physical Exam Const: COMMON NORMALS: no acute distress and patient oriented x3 Resp: COMMON NORMALS: normal respiratory effort, No retractions, No use of accessory muscles and clear to auscultation bilaterally AUSCULTATION: clear to auscultation bilaterally Cardio: COMMON NORMALS: regular rate, regular rhythm, S1 normal heart sound present and S2 normal heart sound present RATE: regular rate RHYTHM: regular rhythm HEART SOUNDS: S1 normal heart sound present and S2 normal heart sound present GI: COMMON NORMALS: Normal to inspection, nondistended, normoactive bowel sounds present Neuro: COMMON NORMALS: patient oriented x3 Psych: COMMON NORMALS: mental status grossly normal Discharge Data Studies Completed and Pending Completed Studies During Hospitalization Category Date Time Status XR knee RT 3V* [id number] Stat Exams 02/10/24 14:28 Completed US venous duplex lower extremity RT [CV venous duplex Ultrasound 02/10/24 14 :[place] [id number]] Stat Pending at discharge Category Date Time Status Abscess Culture and Gram Stain Routine Lab 02/10/24 18:57 Results Anaerobic Culture Routine Lab 02/10/24 18:57 Received Blood Culture Stat Lab 02/10/24 15:05 Results Radiology Impressions Knee X-Ray 02/10/24 14:28 IMPRESSION: 1. 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 2. Mild prepatellar soft tissue swelling. Laboratory Results WBC 10.01 10^3/uL (3.29-11.43) 02/11/24 04:55 RBC 4.55 10^6/uL (3.85-5.65) 02/11/24 04:55 Hgb 13.30 g/dL (11.27-16.99) 02/11/24 04:55 Hct 39.1 % (37-53) 02/11/24 04:55 MCV 85.9 fl (82-101) 02/11/24 04:55 MCH 29.2 pg (27-33) 02/11/24 04:55 MCHC 34.0 g/dL (30-55) 02/11/24 04:55 RDW 12.2 % (12.1-15.1) 02/11/24 04:55 Plt Count 326 10^3/cmm (157-399) 02/11/24 04:55 MPV 9.8 fL (7.4-10.4) 02/11/24 04:55 Neut % (Auto) 86.0 % 02/11/24 04:55 Lymph % (Auto) 8.4 % 02/11/24 04:55 Orange % (Auto) 5.1 % 02/11/24 04:55 Eos % (Auto) 0.0 % 02/11/24 04:55 Baso % (Auto) 0.1 % 02/11/24 04:55 Neut # (Auto) 8.61 10^3/uL (1.8-7.7) H 02/11/24 04:55 Lymph # (Auto) 0.8 10^3/uL (0.8-4.8) 02/11/24 04:55 Orange # (Auto) 0.5 10^3/uL (0.2-0.9) 02/11/24 04:55 Eos # (Auto) 0.0 10^3/uL (0.0-0.8) 02/11/24 04:55 Baso # (Auto) 0.0 10^3/uL (0.0-0.1) 02/11/24 04:55 Nucleated RBC % (auto) 0 % 02/11/24 04:55 Nucleated RBCs # 0.0 /100WBC 02/11/24 04:55 ESR 19 mm/hr (0-10) H 02/10/24 15:17 PT 14.30 SECONDS (12.1-14.9) 02/10/24 15:17 INR 1.08 (0.8-1.2) 02/10/24 15:17 Sodium 136 mmol/L (136-145) 02/11/24 04:55 Potassium 4.4 mmol/L (3.5-5.1) 02/11/24 04:55 Chloride 100 mmol/L (98-107) 02/11/24 04:55 Carbon Dioxide 20 mmol/L (22-29) L 02/11/24 04:55 Anion Gap 20.4 (5-19) H 02/11/24 04:55 BUN 25 mg/dL (6-20) H 02/11/24 04:55 Creatinine 1.1 mg/dL (0.7-1.2) 02/11/24 04:55 GFR Calculation 75.3 mL/min (90-130) L 02/11/24 04:55 Glucose 178 mg/dL (65-115) H 02/11/24 04:55 Estimat Average Glucose 123 02/10/24 15:17 Hemoglobin A1c 5.9 % (4.0-6.0) 02/10/24 15:17 Calculated Osmolality 291 mOsm/kg (285-295) 02/11/24 04:55 Lactic Acid 1.4 mmol/L (0.5-2.2) 02/10/24 21:33 Uric Acid 11.3 mg/dL (3.4-7.0) H 02/10/24 15:17 Calcium 8.3 mg/dL (8.5-10.5) L 02/11/24 04:55 Total Bilirubin 0.8 mg/dL (0.15-1.2) 02/11/24 04:55 AST 15 U/L (0-40) 02/11/24 04:55 ALT 15 U/L (0-41) 02/11/24 04:55 Alkaline Phosphatase 95 U/L (40-130) 02/11/24 04:55 Creatine Kinase 335 U/L (39-308) H* 02/10/24 15:17 C-Reactive Protein 177.1 mg/L (0.0-4.9) H 02/11/24 04:55 Total Protein 7.5 g/dL (6.6-8.7) 02/11/24 04:55 Albumin 4.0 g/dL (3.5-5.2) 02/11/24 04:55 Globulin 3.5 g/dL (1.3-4.6) 02/11/24 04:55 Triglycerides 132 mg/dL (0-150) 02/10/24 15:17 Cholesterol 248 mg/dL (0-200) H 02/10/24 15:17 LDL Cholesterol, Calc 167 mg/dL (50-129) H 02/10/24 15:17 HDL Cholesterol 55 mg/dL (60-100) L 02/10/24 15:17 LDL/HDL Ratio 3.04 RATIO (0.00-3.22) 02/10/24 15:17 Cholesterol/HDL Ratio 4.51 mg/dL (1.0-5.00) 02/10/24 15:17 Procalcitonin 0.20 ng/mL (0-0.5) 02/10/24 15:17 TSH 3.13 uIU/mL (0.27-4.20) 02/10/24 15:17 Synovial Color Cancelled 02/10/24 18:57 Synovial Appearance Cancelled 02/10/24 18:57 Synovial WBC Cancelled 02/10/24 18:57 Synovial RBC Cancelled 02/10/24 18:[address] Cancelled 02/10/24 18:57 Synovial Mononuclear Cancelled 02/10/24 18:57 Synov Polynuclear WBCs Cancelled 02/10/24 18:57 Synovial Other Cells Cancelled 02/10/24 18:57 Synovial Polynuclear % Cancelled 02/10/24 18:57 Synovial Mononuclear % Cancelled 02/10/24 18:57 Path Cons w/Slide Cancelled 02/10/24 18:57 Vitals Last Vital Signs Temp 97.6 F 02/11/24 12:18 Pulse 69 02/11/24 12:18 Resp 16 02/11/24 12:18 BP 186/26 02/11/24 12:18 Pulse Ox 94 02/11/24 12:18 O2 Del Method Room Air 02/11/24 08:30 Discharge Plan Discharge Patient Disposition: Left Against Medical Advice Condition: Stable Prescriptions: New amoxicillin-pot clavulanate 875-125 mg tablet 1 tab PO Q12H 7 Days Qty: 14 0RF doxycycline hyclate 100 mg tablet 100 mg PO BID 7 Days Qty: 14 0RF Discontinued Aleve 220 mg Tablet 220 mg PO BID PRN (Reason: Pain) Referrals: Eusebio Singh DO [Physician] - 2 weeks (We have notified your physician's clinic of the need for a follow-up appointment to be scheduled. If you have not heard from them within the next 2 business days, please call them directly. ) Patient Instructions: Opioid Safety Discharge Attestations Time Spent in Discharge Care*: greater than 30 min Quality Metrics Clinical Quality Measures [ No reported AMI, CVA or VTE this stay] Coding Level of Care Code Acute Code for [facility] Diagnoses Pyogenic arthritis of right knee joint, due to unspecified organism M00.9 Septic arthritis organism: due to unspecified organism
--- NOTE | 2024-02-11 12:53 | PC.SOCIAL ---
Patient Left AMA before CM could see him
== END 2024-02-11 12:19 | disposition left against medical advice (07) | DRG 486 ==
LOC: ER 17:10 → OPS 17:54 → MEDSURG 19:42
PROVIDERS: Admitting Provider Family Medicine; Emergency Provider Physician Assistant; Visit Provider Orthopaedic Surgery
PROC: 0S9C00Z Drainage of Right Knee Joint with Drainage Device, Open Approach (ICD-10-PCS; principal; 2024-02-10 18:30)
DX: M00.9 Pyogenic arthritis, unspecified (principal); L03.115 Cellulitis of right lower limb; Z53.29 Procedure and treatment not carried out because of patient's decision for other reasons
CPT/HCPCS: 36415; 73562; 80053; 80061; 82550; 83036; 83605; 84145; 84443; 84550; 85025; 85610; 85651; 86140; 87040; 87070; 87075; 87205; 93971; 94664; 96365; 96367; 96372; 97116; 97161; 97165; 99285; C9113; J0131; J1100; J1170; J1650; J1885; J2250; J2405; J2543; J2704; J3010; J3370; J3490; J7030; J7050

== ENCOUNTER → 2024-02-25 13:43 | Outpatient (BNVA) | payer MEDICAID, SELFPAY | PROVIDERS: Visit Provider Orthopaedic Surgery | DX: M00.9 Pyogenic arthritis, unspecified (principal) | CPT/HCPCS: 99024 ==